=== PATIENT | female | born 1965 | race Caucasian/White ===

== ENCOUNTER 2016-05-10 11:43 | Emergency (ER) | payer OTHER ==
[2016-05-10] MEDS ORDERED: IPRATROPIUM-ALBUTEROL 3 ML NEB INHALATION STA ×2 (14:29→16:08)
[2016-05-10] MEDS ORDERED: methylPREDNISolone SOD SUCCI 125 MG/2 ML VIAL IV STA (14:29)
--- NOTE | 2016-05-10 14:45 | XR ---
EXAMINATION TYPE: XR chest 2V DATE OF EXAM: 05/10/2016 2:39 PM COMPARISON: 02/19/2013 HISTORY: Shortness of breath TECHNIQUE: Frontal and lateral views of the chest are obtained. FINDINGS: Scattered senescent parenchymal changes noted. Hyperinflation compatible with COPD. No evidence for infiltrate. No evidence for atelectasis. Heart size is stable. Mediastinal structures are stable and grossly unremarkable. No evidence for hilar prominence. Degenerative changes dorsal spine. IMPRESSION: 1. No evidence for acute pulmonary disease.
--- NOTE | 2016-05-10 14:55 | ED ---
General Adult HPI - General Chief complaint: Upper Respiratory Infection Stated complaint: SENT BY DR PEREYRA FOR BRONCIAL PNEUMONIA Time Seen by Provider: 05/10/16 14:05 Source: patient, RN notes reviewed Mode of arrival: wheelchair Limitations: no limitations - History of Present Illness Initial comments: Patient 50-year-old female who presents emergency room today with a chief complaint of bronchopneumonia. She does not that she was been seen by the family doctor over the last 2 weeks diagnosed and states symptoms are not improving. States she was advised by her family doctor come here to the emergency room for IV medication. Patient does admit she's been trying breathing treatments at home with little relief the symptoms. Patient does admit to cough congestion with positive sputum production it's been green in color. Denies any other complaints. Patient denies any recent fever, chills, shortness of breath, chest pain, back pain, abdominal pain, nausea or vomiting, numbness or tingling, dysuria or hematuria, constipation or diarrhea, headaches or visual changes, or any other complaints. - Related Data Home Medications Medication Instructions Recorded Confirmed Atenolol [Tenormin] 25 mg PO QAM 09/09/13 05/10/16 DULoxetine HCL [Cymbalta] 60 mg PO QAM 09/09/13 05/10/16 Hydrochlorothiazide [Hydrodiuril] 25 mg PO QAM 09/09/13 05/10/16 Levothyroxine Sodium [Synthroid] 75 mcg PO QAM 09/09/13 05/10/16 Albuterol Nebulized [Ventolin 2.5 mg INHALATION RT-TID PRN 05/10/16 05/10/16 Nebulized] Azithromycin [Zithromax Z-pack] See Taper PO DAILY 05/10/16 05/10/16 Brimonidine Tartrate [Alphagan P 1 drops LEFT EYE BID 05/10/16 05/10/16 0.1% Ophth Soln] Carboxymethylcellulose Sodium 1 drop LEFT EYE QID 05/10/16 05/10/16 [Refresh Tears] Cefuroxime [Ceftin] 250 mg PO BID 05/10/16 05/10/16 James/Polymyx B Sulf/Dexameth 1 applic LEFT EYE BID 05/10/16 05/10/16 [Maxitrol Ophth Oint] Omeprazole 20 mg PO DAILY 05/10/16 05/10/16 methylPREDNISolone Dose Pack See Taper PO DAILY 05/10/16 05/10/16 [Medrol Dose Pack] Previous Rx's Medication Instructions Recorded Benzonatate [Tessalon Perles] 100 mg PO TID PRN #20 capsule 05/10/16 Allergies Allergy/AdvReac Type Severity Reaction Status Date / Time Sulfa (Sulfonamide Allergy Rash/Hives Verified 05/10/16 14:35 Antibiotics) tape Allergy Rash/Hives Uncoded 11/18/13 12:13 Review of Systems ROS Statement: Those systems with pertinent positive or pertinent negative responses have been documented in the HPI. ROS Other: All systems not noted in ROS Statement are negative. Past Medical History Past Medical History: GERD/Reflux, Hypertension, Thyroid Disorder Additional Past Medical History / Comment(s): low back pain, arth left knee, migraines History of Any Multi-Drug Resistant Organisms: None Reported Past Surgical History: Appendectomy, Bariatric Surgery, Breast Surgery, Cholecystectomy, Heart Catheterization, Hysterectomy, Orthopedic Surgery, Tonsillectomy Additional Past Surgical History / Comment(s): Lap band 2010 & prior yr unknown, panniculectomy yr unknown, breast reduction yr unknown, heart cath x2, carpul tunnel june hands, colonoscopy. BLADDER SUSPENSION. Pt had lap band removed . Past Anesthesia/Blood Transfusion Reactions: Family History of Problems w/ Anesthesia, Postoperative Nausea & Vomiting (PONV) Additional Past Anesthesia/Blood Transfusion Reaction / Comment(s): STATES SHE GETS AGITATED WHEN FIRST RECEIVING IV ANESTHESIA. Past Psychological History: Anxiety Smoking Status: Former smoker Past Alcohol Use History: None Reported Past Drug Use History: None Reported - Past Family History Father Family Medical History: Cancer, Deep Vein Thrombosis (DVT) Additional Family Medical History / Comment(s): prostate cancer General Exam - General Exam Comments Initial Comments: General: The patient is awake and alert, in no distress, and does not appear acutely ill. Eye: Pupils are equal, round and reactive to light, extra-ocular movements are intact. No nystagmus. There is normal conjunctiva bilaterally. No signs of icterus. Ears, nose, mouth and throat: There are moist mucous membranes and no oral lesions. Neck: The neck is supple, there is no tenderness or JVD. Cardiovascular: There is a regular rate and rhythm. No murmur, rub or gallop is appreciated. Respiratory: Decreased breath sounds bilaterally with mild expiratory wheeze. respirations are non-labored, breath sounds are equal. No stridor, rales, or rhonchi. Musculoskeletal: Normal ROM, no tenderness. Strength 5/5. Sensation intact. Pulses equal bilaterally 2+. Neurological: A&O x 3. CN II-XII intact, There are no obvious motor or sensory deficits. Coordination appears grossly intact. Speech is normal. Skin: Skin is warm and dry and no rashes or lesions are noted. Psychiatric: Cooperative, appropriate mood & affect, normal judgment. Limitations: no limitations Course Vital Signs 05/10/16 05/10/16 05/10/16 12:35 14:39 14:50 Temperature 98.2 F Pulse Rate 68 70 72 Respiratory 20 Rate Blood Pressure 159/88 O2 Sat by Pulse 98 Oximetry 05/10/16 05/10/16 05/10/16 15:26 16:01 16:13 Temperature 98.4 F Pulse Rate 67 66 68 Respiratory 18 26 H Rate Blood Pressure 154/72 151/68 O2 Sat by Pulse 99 99 Oximetry 05/10/16 16:23 Temperature Pulse Rate 70 Respiratory Rate Blood Pressure O2 Sat by Pulse Oximetry Medical Decision Making - Medical Decision Making Patient reexamined at this time shows no signs of distress. Patient's pulse ox currently 99% on room air. Patient's chest x-rays negative for any sign of pneumonia. Results were discussed with the patient. Case discussed with attending physician Dr. Puckett who discussed case with on-call for Dr. Mauricio Borjas. Recommends patient be discharged home. Continued on steroids breathing treatments. Patient given [place] present for symptoms advised follow- up the family doctor over the next 2 days. Patient advised return to emergency room symptoms increase or worsen or for any other concerns she states understanding. - Lab Data Result diagrams: 05/10/16 15:10 05/10/16 15:10 Lab Results 05/10/16 05/10/16 Range/Units 15:10 15:10 WBC 13.2 H (3.8-10.6) k/uL RBC 5.03 (3.80-5.40) m/uL Hgb 13.9 (11.4-16.0) gm/dL Hct 41.9 (34.0-46.0) % MCV 83.2 (80.0-100.0) fL MCH 27.7 (25.0-35.0) pg MCHC 33.3 (31.0-37.0) g/dL RDW 13.5 (11.5-15.5) % Plt Count 383 (150-450) k/uL Neutrophils % 64 % Lymphocytes % 29 % Monocytes % 5 % Eosinophils % 0 % Basophils % 1 % Neutrophils # 8.5 H (1.3-7.7) k/uL Lymphocytes # 3.8 (1.0-4.8) k/uL Monocytes # 0.6 (0-1.0) k/uL Eosinophils # 0.0 (0-0.7) k/uL Basophils # 0.1 (0-0.2) k/uL Sodium 142 (137-145) mmol/L Potassium 4.7 (3.5-5.1) mmol/L Chloride 98 (98-107) mmol/L Carbon Dioxide 30 (22-30) mmol/L Anion Gap 14 mmol/L BUN 24 H (7-17) mg/dL Creatinine 0.83 (0.52-1.04) mg/dL Est GFR (MDRD) Af Amer >60 (>60 ml/min/1.73 sqM) Est GFR (MDRD) Non-Af >60 (>60 ml/min/1.73 sqM) Glucose 89 (74-99) mg/dL Calcium 10.2 (8.4-10.2) mg/dL Total Bilirubin 0.5 (0.2-1.3) mg/dL AST 19 (14-36) U/L ALT 34 (9-52) U/L Alkaline Phosphatase 79 (38-126) U/L Total Protein 8.3 H (6.3-8.2) g/dL Albumin 4.6 (3.5-5.0) g/dL Disposition Clinical Impression: Acute bronchitis Disposition: HOME SELF-CARE Condition: Good Instructions: Upper Respiratory Infection (ED) Additional Instructions: Please use medication as discussed. Please follow-up with family doctor in the next 2 days of symptoms have not improved. Please return to emergency room if the symptoms increase or worsen or for any other concerns. Prescriptions: Benzonatate [Tessalon Perles] 100 mg PO TID PRN #20 capsule PRN Reason: Cough Time of Disposition: 16:35
[2016-05-10 15:31] LABS: Basophils # (A) 0.1 k/uL (0-0.2); Basophils % (A) 1 %; CH 27.5; CHCM 33.2; Eosinophils % (A) 0 %; HCT 41.9 % (34.0-46.0); HDW 2.78; HGB 13.9 gm/dL (11.4-16.0); Luc # (Auto) 0.25; Luc % (Auto) 2; Lymphocytes # (A) 3.8 k/uL (1.0-4.8); Lymphocytes % (A) 29 %; MCH 27.7 pg (25.0-35.0); MCHC 33.3 g/dL (31.0-37.0); MCV 83.2 fL (80.0-100.0); Mean Platelet Volume 7.9; Monocytes # (A) 0.6 k/uL (0-1.0); Monocytes % (A) 5 %; Neutrophils # (A) 8.5 k/uL (1.3-7.7); Neutrophils % (A) 64 %; RBC 5.03 m/uL (3.80-5.40); RDW 13.5 % (11.5-15.5); WBC 13.2 k/uL (3.8-10.6); WBC (Perox) 12.72
[2016-05-10] MEDS ORDERED: ACETAMINOPHEN IV (For NPO) 1,000 MG in SALINE 100 100ML.BAG IVPB STA (15:34)
[2016-05-10 15:39] LABS: ALT 34 U/L (9-52); AST 19 U/L (14-36); Alkaline Phosphatase 79 U/L (38-126); Anion Gap 14 mmol/L; Blood Urea Nitrogen 24 mg/dL (7-17); Calcium 10.2 mg/dL (8.4-10.2); Carbon Dioxide 30 mmol/L (22-30); Chloride 98 mmol/L (98-107); Glucose 89 mg/dL (74-99); Non-African American GFR(MDRD) >60 (>60 ml/min/1.73 sqM); Potassium 4.7 mmol/L (3.5-5.1); Sodium 142 mmol/L (137-145); Total Bilirubin 0.5 mg/dL (0.2-1.3); Total Protein 8.3 g/dL (6.3-8.2)
[2016-05-10 16:55] VITALS: BP 157/77; PULSE 66; RESP 19; TEMP 98.3
== END 2016-05-10 16:55 | disposition home or self-care (01) ==
LOC: EC 11:43
DX: J20.9 Acute bronchitis, unspecified (principal); Z79.899 Other long term (current) drug therapy; I10 Essential (primary) hypertension; E07.9 Disorder of thyroid, unspecified; K21.9 Gastro-esophageal reflux disease without esophagitis; Z88.2 Allergy status to sulfonamides; Z91.048 Other nonmedicinal substance allergy status; Z87.891 Personal history of nicotine dependence; F41.9 Anxiety disorder, unspecified
CPT/HCPCS: 36415; 94640 ×2; 80053; 85025; 71020; 96374; 96375; 99284; J2930; J0131

== ENCOUNTER → 2017-10-29 | Outpatient (CLI) | payer OTHER ==
--- NOTE | 2017-10-29 13:33 | CONS ---
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 HISTORY OF PRESENT ILLNESS/SLEEP WAKE EVALUATION: Patient's usual sleep schedule from 10 p.m. until 4:30 a.m. Usually no problems with falling asleep. No TV set in bedroom. Patient usually sleeps on the side position with her . She wakes up from sleep up to 2 times with nocturia. Her did not complain on her snoring. Occasionally patient may take naps during the day because she gets up so early. She feel refreshed after naps. She takes 1 to 2 cups of coffee a day. [place] Sleepiness Scale is 2. PAST MEDICAL HISTORY: Positive for hypertension, hypothyroidism, acid reflux, anxiety, history of left eye infection. PAST SURGICAL HISTORY: Bilateral surgery for carpal tunnel syndrome, tonsillectomy, cholecystectomy, total hysterectomy, breast reduction, lap band surgery, sinus surgery. MEDICATIONS: Omeprazole, Cymbalta, levothyroxine, doxycycline, hydrochlorothiazide, atenolol, eye drops. SOCIAL HISTORY: Patient quit smoking 32 years ago. Alcohol consumption very rarely at the present time. FAMILY HISTORY: Hypertension, heart problems, arthritis, sinus problems, bronchitis, pneumonia, headaches, cancer, acid reflux, diabetes. REVIEW OF SYSTEMS: Occasional swelling of the legs, otherwise negative. PHYSICAL EXAMINATION: During physical exam, a 52-year-old lady without distress. VITAL SIGNS: BP 141/88, HR is 77, RR 16, height 5 feet 6-1/2 inches, weight 275.2, BMI 43.7, temperature 98.6, oxygen saturation in room air 97%. HEENT: PERRLA, EOMI. Oropharynx slightly short distance between soft palate and posterior pharyngeal wall. NECK: Supple, no JVD. Thyroid is not palpable. LUNGS: Clear to percussion and to auscultation. Good air exchange. No wheezing or rhonchi. HEART: S1, S2 regular. No murmurs, gallops, or rubs. ABDOMEN: Obese. EXTREMITIES: Very minimal up to 1+ ankle swelling. LAND COMMISSIONER: Awake, alert, and oriented x3. Cranial nerves 2 to 7 intact. There is no fasciculation or atrophy. noted. No focal deficits observed. IMPRESSION: 1. Awakenings from sleep with nocturia up to 2 times, wide neck 17 inches in circumference, obesity, BMI 43.7, slightly short distance between soft palate and posterior pharyngeal wall, possible obstructive sleep apnea-hypopnea syndrome. 2. Obesity, body mass index 43.7. 3. Hypertension. 4. Hypothyroidism. 5. Acid reflux. 6. Anxiety. 7. History of left eye infection recently. 8. Status post bilateral carpal tunnel syndrome surgery. 9. Status post tonsillectomy. 10.Status post cholecystectomy. 11.Status post total hysterectomy. 12.Status post breast reduction surgery. 13.Status post lap band surgery. 14.Status post sinus surgery. PLAN: 1. Polysomnography for evaluation of patient's breathing during sleep. 2. CPAP/BiPAP titration if sleep study confirms obstructive sleep apnea-hypopnea syndrome. 3. Preferable position during sleep on the side. 4. No driving if patient feels any sleepiness. 5. I will see patient for follow up visit to explain results of testing and following plan. Thank you very much for referring this patient for consultation. Sincerely, Titus Barrett MD, PhD, FAASM Diplomat of [employer] Certified Anesthesiologist Assistant of [facility] [place] MMODL / IJN: [id number] /
== END | disposition home or self-care (01) ==
LOC: SLEEP 10:39
PROVIDERS: ATTEND Internal Medicine
DX: R35.1 Nocturia (principal); J39.2 Other diseases of pharynx; M53.82 Other specified dorsopathies, cervical region; E66.9 Obesity, unspecified; I10 Essential (primary) hypertension; E03.9 Hypothyroidism, unspecified; K21.9 Gastro-esophageal reflux disease without esophagitis; F41.9 Anxiety disorder, unspecified; Z87.39 Personal history of other diseases of the musculoskeletal system and connective tissue; Z98.890 Other specified postprocedural states; Z90.89 Acquired absence of other organs; Z90.49 Acquired absence of other specified parts of digestive tract; Z90.710 Acquired absence of both cervix and uterus; Z98.84 Bariatric surgery status; Z86.19 Personal history of other infectious and parasitic diseases; Z68.41 Body mass index [BMI] 40.0-44.9, adult; Z79.899 Other long term (current) drug therapy; Z87.891 Personal history of nicotine dependence
CPT/HCPCS: 99211

== ENCOUNTER → 2018-01-15 | Outpatient (CLI) | payer OTHER ==
--- NOTE | 2018-01-15 11:55 | SFUN ---
SLEEP CENTER FOLLOW UP NOTE DATE OF SERVICE: 01/15/2018 This 52-year-old lady has been followed in sleep center for treatment of obstructive sleep apnea-hypopnea syndrome. Recently patient had a diagnostic polysomnogram and CPAP titration, which showed severe obstructive sleep apnea-hypopnea syndrome. Subsequently, patient was started on treatment with CPAP. Today is her first visit with new CPAP unit. I explained the results of the sleep studies to the patient in detail. She is able to use her CPAP equipment without significant problems. The patient feels that she has leak from her nasal mask, but otherwise again she is able to use machine without significant problems. [place] Sleepiness Scale today is 2. I checked patient's CPAP unit. It is in the automatic regimen range of the pressure of 5 to 18, most 95% of the pressure is 8.9 cm of water. The patient using it every night and /30 nights more than 4 hours. Average usage 5.5 hours. Leak is 32 L/minute. Apnea-hypopnea index is 3.4, which is normal range. MEDICATIONS: Omeprazole, Cymbalta, levothyroxine, doxycycline, hydrochlorothiazide, atenolol, eyedrops. PHYSICAL EXAMINATION: During physical exam, patient in no distress. VITAL SIGNS: BP 160/79, HR 75, RR 16, weight 285.2, temperature 98.6, oxygen saturation room air 98%. HEENT: PERRLA, EOMI. Oropharynx low position of soft palate. NECK: Supple, no JVD. Thyroid is not palpable. LUNGS: Clear to percussion and to auscultation. Good air exchange. No wheezing or rhonchi. HEART: S1, S2 regular. No murmurs, gallops, or rubs. ABDOMEN: Obese. EXTREMITIES: No clubbing or cyanosis. SAUSAGE MAKER: Awake, alert, and oriented X3. Cranial nerves 2 to 7 intact. There is no fasciculation or atrophy. noted. No focal deficits observed. IMPRESSION: 1. Severe obstructive sleep apnea-hypopnea syndrome; apnea-hypopnea index 31 with oxygen saturation of 80% on control with CPAP, level of the pressure around 9 cm of water. The machine is on automatic regimen. The patient demonstrated great compliance with treatment benefitting from treatment. 2. Hypertension. 3. Obesity. 4. Anxiety. 5. Acid reflux. 6. Hypothyroidism. PLAN: 1. We fitted patient with DreamWear mask small size. Patient likes this mask. I will write prescription for patient to get this mask. 2. Patient will continue to use her CPAP equipment every night for the whole night. 3. Losing weight. 4. Sleep hygiene with regular time in bed for at least 8 hours. 5. No driving if feeling any sleepiness. 6. We will maintain prescription for all necessary CPAP supplies. Thank you very much for allowing me to participate in management of your patient. Followup visit in one year or earlier if patient has any problems. Sincerely, Titus Barrett MD, PhD, FAASM Diplomat of [place] [employer] [employer] Driver of [facility] [place] MMODL / REECEN: [id number] /
== END | disposition home or self-care (01) ==
LOC: SLEEP 10:11
PROVIDERS: ATTEND Internal Medicine
DX: G47.33 Obstructive sleep apnea (adult) (pediatric) (principal); I10 Essential (primary) hypertension; E66.9 Obesity, unspecified; F41.9 Anxiety disorder, unspecified; K21.9 Gastro-esophageal reflux disease without esophagitis; E03.9 Hypothyroidism, unspecified; Z99.89 Dependence on other enabling machines and devices; Z79.899 Other long term (current) drug therapy

== ENCOUNTER → 2018-03-05 | Outpatient (CLI) | payer OTHER ==
--- NOTE | 2018-03-05 12:44 | BD ---
EXAMINATION TYPE: Axial Bone Density DATE OF EXAM: 03/05/2018 COMPARISON: NONE CLINICAL HISTORY: 52 YR OLD FEMALE....ICD-10 CODE: Z13.820 POST MENOPAUSAL Height: 66 Weight: 281 FRAX RISK QUESTIONS: History of Fracture in Adulthood: YES Secondary Osteoporosis: YES 3. Menopause before 45: YES, AT 26 YRS OLD RISK FACTORS HISTORY OF: HX OF LT KNEE, AND PATELLA FX AT AGE 46 YRS OLD Family History of Osteoporosis: YES HER SISTER Postmenopausal woman: TOTAL HYST AT AGE 27 YRS OLD MEDICATIONS: Thyroid Medications: YES, SYNTHROID FOR ABOUT 10 YRS Additional Medications: BP MEDS, CYMBALTA, REFLUX MEDS, CALCIUM WITH D DAILY Additional History: HYPERTENSION, GURD, EXAM MEASUREMENTS: Bone mineral densitometry was performed using the [employer] System. Bone mineral density as measured about the Lumbar spine is: ----- L1-L4(G/cm2): 1.246 T Score Values are as follows: ----- L1: 0.4 ----- L2: -0.5 ----- L3: 0.5 ----- L4: 1.5 ----- L1-L4: 0.5 Bone mineral density FIRST BONE DENSITY AT [facility] Bone mineral density about the R hip (g/cm2): 1.019 Bone mineral density about the L hip (g/cm2): 1.073 T Score values are as follows: -----R Neck: -0.6 -----L Neck: -0.1 -----R Total: 0.1 -----L Total: 0.5 Bone mineral density FIRST DEXA SCAN AT [facility] FRAX%s: THERE IS A 7.6% CHANCE FOR A MAJOR OSTEOPOROTIC FX AND A 0.2% FOR HIP....PROBABILITY FOR F X IN 10 YRS TIME IMPRESSION: No evidence for osteoporosis or osteopenia. NOTE: T-SCORE=SD OF THE YOUNG ADULT MEAN.
--- NOTE | 2018-03-06 13:54 | MM ---
Reason for exam: screening (asymptomatic). Last mammogram was performed 15 years and 10 months ago. History: Patient is postmenopausal. Family history of breast cancer in paternal grandmother. Reductions of both breasts. Physical Findings: A clinical breast exam by your physician is recommended on an annual basis and results should be correlated with mammographic findings. MG 3D Screening Mammo W/Cad Bilateral CC, MLO, and XCCL view(s) were taken. Prior study comparison: April 26, 2009, mammogram, performed at [facility]. There are scattered fibroglandular densities. Finding: There are indeterminate grouped, linear calcifications in the slight upper outer quadrant, anterior position of the right breast. New finding since April 26, 2009. ASSESSMENT: Incomplete: need additional imaging evaluation, BI-RAD 0 RECOMMENDATION: Special view mammogram of the right breast. [facility] will attempt to contact patient to return for supplemental views.
== END | disposition home or self-care (01) ==
LOC: RADMAMWWP 10:01
PROVIDERS: ATTEND Family Medicine
DX: Z12.31 Encounter for screening mammogram for malignant neoplasm of breast (principal)
CPT/HCPCS: 77063; 77067; 77080

== ENCOUNTER → 2018-03-25 | Outpatient (CLI) | payer OTHER ==
--- NOTE | 2018-03-26 09:41 | MM ---
Reason for exam: additional evaluation requested from prior study. Last mammogram was performed 1 month ago. History: Patient is postmenopausal. Family history of breast cancer in paternal grandmother. Reductions of both breasts 2009. Physical Findings: Nurse did not find any significant physical abnormalities on exam. MG 3D Work Up W/Cad RT CC with magnification, ML with magnification, and ML view(s) were taken of the right breast. Prior study comparison: March 05, 2018, bilateral MG 3d screening mammo w/cad. April 26, 2009, mammogram, performed at [facility]. The breast tissue is almost entirely fat. There are grouped coarse calcification in the right breast upper outer anterior. Finding is new when compared to prior studies. These results were verbally communicated with the patient and result sheet given to the patient on 03/25/18. ASSESSMENT: Suspicious, BI-RAD 4 RECOMMENDATION: Stereotactic core biopsy of the right breast. Called Dr. Martínez with mammographic findings and has scheduled an appointment for the patient for 04/09/18 at 2:[address] Dominique for consultation only. Stereo core biopsy of the right breast is to be done on 04/10/18 at 8:00 am. PRELIMINARY REPORT CALLED AND FAXED TO DR. DOMINIQUE ON 03/25/18.
== END ==
LOC: RADMAMWWP 10:09
PROVIDERS: ATTEND Family Medicine
DX: R92.8 Other abnormal and inconclusive findings on diagnostic imaging of breast (principal)
CPT/HCPCS: 77061; 77065

== ENCOUNTER → 2018-04-09 | Outpatient (CLI) | payer OTHER ==
[2018-04-09 15:04] VITALS: BP 134/87; PULSE 63; RESP 18; TEMP 97.9; BMI 44.6
--- NOTE | 2018-04-09 15:43 | P.GSHP ---
History of Present Illness H&P Date: 04/09/18 Chief Complaint: abnormal right breast mammogram Anna is a 52-year-old white female who on a routine mammogram was noted to have an area of increased coarse calcifications in the right breast in the upper outer quadrant of the right breast. She does not feel anything of concern in her breast. Of significance is the fact that she had undergone a breast reduction approximately 10 years ago and has not had a mammogram since that time. No nipple discharge or skin changes. Family History: paternal grandmother: breast cancer father: prostate cancer brother: prostate cancer Hormonal History: menarche: 10 : 2, first at 21, breast fed: no, 2 children menopause: PEACE late 's irregular periods BCP: 2 months hormones: 2 months Past Surgical History: 1. T&A 2. appy 3. gallbladder 4. PEACE (total abdominal hysterectomy) 5. breast reduction 6. tummy tuck 7. twice lap-band lost 100 pounds 8. bilateral carpal tunnel 9. cyst on ovary and resection prior to PEACE Past Medical History: 1. HTN 2. hypothyroid 3. sleep apnea Social History: smoke: none alcohol: occasional drugs: none - Constitutional Constitutional: Denies chills, Denies fever - EENT Comment: cataract left eye Eyes: denies blurred vision, denies pain Ears: deny: decreased hearing, tinnitus Ears, nose, mouth and throat: Denies headache, Denies sore throat - Breasts Breasts: bilateral: as per HPI - Cardiovascular Cardiovascular: Reports high blood pressure, Denies chest pain, Denies shortness of breath - Respiratory Respiratory: Denies cough, Denies 7 - Gastrointestinal Comment: lap band twice (both removed), diverticular disease GERD - Genitourinary (Female) Genitourinary: Denies dysuria, Denies hematuria - Menstruation Menstruation: Reports post hysterectomy - Musculoskeletal Comment: left knee pain - Integumentary Integumentary: Denies pruritus, Denies rash - Neurological Neurological: Denies numbness, Denies weakness - Psychiatric Psychiatric: Reports anxiety, Reports depression - Endocrine Comment: hypothyroid - Hematologic/Lymphatic Comment: none - Allergic/Immunologic Comment: sulfa, tape Past Medical History Past Medical History: GERD/Reflux, Hypertension, Thyroid Disorder Additional Past Medical History / Comment(s): low back pain, arth left knee, migraines, left eye cataract History of Any Multi-Drug Resistant Organisms: None Reported Past Surgical History: Appendectomy, Bariatric Surgery, Breast Surgery, Cholecystectomy, Heart Catheterization, Hysterectomy, Orthopedic Surgery, Tonsillectomy Additional Past Surgical History / Comment(s): Lap band 2010 & prior yr unknown, panniculectomy yr unknown, breast reduction yr unknown, heart cath x2, carpul tunnel june hands, colonoscopy. BLADDER SUSPENSION. Pt had lap band removed . Abdominalplasty 2007 Past Anesthesia/Blood Transfusion Reactions: Family History of Problems w/ Anesthesia, Postoperative Nausea & Vomiting (PONV) Additional Past Anesthesia/Blood Transfusion Reaction / Comment(s): STATES SHE GETS AGITATED WHEN FIRST RECEIVING IV ANESTHESIA. Past Psychological History: Anxiety Smoking Status: Former smoker Past Alcohol Use History: Rare Past Drug Use History: None Reported - Past Family History Father Family Medical History: Cancer, Deep Vein Thrombosis (DVT) Additional Family Medical History / Comment(s): prostate cancer Medications and Allergies Home Medications Medication Instructions Recorded Confirmed Type Atenolol [Tenormin] 25 mg PO QAM 09/09/13 04/09/18 History DULoxetine HCL [Cymbalta] 60 mg PO QAM 09/09/13 04/09/18 History Hydrochlorothiazide [Hydrodiuril] 25 mg PO QAM 09/09/13 04/09/18 History Levothyroxine Sodium [Synthroid] 75 mcg PO QAM 09/09/13 04/09/18 History Carboxymethylcellulose Sodium 1 drop BOTH EYES QID 05/10/16 04/09/18 History [Refresh Tears] Omeprazole 20 mg PO DAILY 05/10/16 04/09/18 History Aspirin [Adult Low Dose Aspirin EC] 81 mg PO DAILY 04/01/18 04/09/18 History Doxycycline [Vibramycin] 50 mg PO DAILY 04/01/18 04/09/18 History Olopatadine HCl [Pazeo] 1 drop BOTH EYES DAILY 04/01/18 04/09/18 History Allergies Allergy/AdvReac Type Severity Reaction Status Date / Time bee venom protein (honey bee) Allergy Swelling Verified 04/09/18 15:05 Sulfa (Sulfonamide Allergy Rash/Hives Verified 04/09/18 15:05 Antibiotics) tape Allergy Rash/Hives Uncoded 04/09/18 15:05 Surgical - Exam Vital Signs Temp Pulse Resp BP Pulse Ox 97.9 F 63 18 134/87 97 04/09/18 14:57 04/09/18 14:57 04/09/18 14:57 04/09/18 14:57 04/09/18 14:57 BMI 44.7 - General obese - Eyes normal ocular movement - ENT no hearing loss, no congestion - Neck no masses, trachea midline - Respiratory normal respiratory effort, clear to auscultation - Cardiovascular Rhythm: regular Heart Sounds: normal: S1, S2 - Abdomen Abdomen: soft, non tender, no guarding, no rigid, no rebound - Integumentary normal turgor - Neurologic no disoriented, no combative - Musculoskeletal normal gait, normal posture - Psychiatric oriented to time, oriented to person, oriented to place, speech is normal, memory intact breast exam: right breast: multipostitional exam changes from reduction mammoplasty, no dominate masses or nodules right axilla: no adenopathy of concern left breast: multipositional exam, changes from reduction mammoplasty, no dominate masses or nodules of concern Results mammogram report reviewed Assessment and Plan Assessment: Impression: 1. obesity 2. abnormal mammogram right breast 3. HTN 4. hypothyroid 5. arthritis left knee Plan: 1. stero biopsy right breast 2. medical managment of medical conditions Risk and benefits of procedure discussed with the patient and she wishes to proceed. CC: Dr. Martínez
== END | disposition home or self-care (01) ==
LOC: WWCWWP 14:50
PROVIDERS: ATTEND Surgery
DX: Z53.9 Procedure and treatment not carried out, unspecified reason (principal)

== ENCOUNTER → 2018-04-10 | Day surgery (SDC) | payer OTHER ==
[2018-04-10 07:20] VITALS: RESP 18; TEMP 98; BMI 45.3
--- NOTE | 2018-04-10 08:38 | P.OP ---
Date of Procedure: 04/10/18 Preoperative Diagnosis: Mammographic abnormality right breast Postoperative Diagnosis: same Procedure(s) Performed: Right breast stereotactic core biopsy Anesthesia: local Surgeon: Rosetta Dominique Estimated Blood Loss (ml): 1 Pathology: other Condition: stable Disposition: same day Indications for Procedure: Mammographic abnormality right breast Operative Findings: Microcalcifications of concern and specimen Description of Procedure: Anna is a 52-year-old white female who was noted to have microcalcifications of concern in her right breast on a recent mammogram. The patient was recommended to undergo a stereotactic core biopsy. The patient was taken to the stereotactic core room after risk and benefits of the procedure were discussed. She was positioned on the Lo Rad table; the approach to identify the lesion was a lateral to medial approach. The area of concern was identified and targeted. The breast was prepped using Betadine. 20 mL of 1% lidocaine was used to anesthetize the area of concern. The needle was driven to the correct coordinates and prefire films were obtained to identify the needle was in the correct location. The needle was fired and post-fire films were obtained. 6 core biopsies were obtained using a 19-gauge vacuum assisted rotating cutting needle. Radiograph of the specimen revealed that the calcifications of concern had been sampled. A secure marked top-felt hat steamer was deployed at the site and radiograph confirmed was in the correct location. There were no immediate post procedure complications. The patient tolerated the procedure in stable condition. The patient will follow-up with Dr. Barboza in 1 week. The specimen was sent for pathology.
[2018-04-10 09:08] VITALS: BP 118/70; PULSE 60
--- NOTE | 2018-04-10 10:04 | MM ---
Stereotactic core biopsy right breast. HISTORY: Microcalcifications. The calcifications in question within the right breast were targeted by the undersigned. The examination was performed by the surgeon. Specimen radiograph demonstrates numerous calcifications within the specimen submitted. Post procedural mammogram demonstrates appropriate deployment of radiopaque clip marker. The patient tolerated the procedure well and left the department in stable condition. Pathology results are pending. IMPRESSION: Successful stereotactic core biopsy right breast with pathology results pending. Pathology Results: Benign RIGHT BREAST, NEEDLE CORE BIOPSIES: Benign breast parenchyma with pigmented histiocytes and intraductal mineralizations suggestive of trauma to fibrocystic disease or breast trauma. Recommendation Follow up mammogram of the right breast in 6 months. BILL
== END | disposition home or self-care (01) ==
LOC: RADMAMWWP 06:49
PROVIDERS: ATTEND Surgery
DX: R92.0 Mammographic microcalcification found on diagnostic imaging of breast (principal); R92.8 Other abnormal and inconclusive findings on diagnostic imaging of breast
CPT/HCPCS: 88305; 19081; A4648; J2001

== ENCOUNTER → 2018-04-17 | Outpatient (CLI) | payer OTHER ==
[2018-04-17 11:31] VITALS: BP 134/83; PULSE 69; RESP 18; TEMP 97.4
--- NOTE | 2018-04-17 11:44 | P.PN ---
Subjective Progress Note Date: 04/17/18 Principal diagnosis: right breast sterotactic biopsy Anna is a 52-year-old white female status post right breast stereotactic core biopsy and 2118. This was benign specific. An pathology reveals intraductal mineralization suggestive of trauma to fibrocystic disease or breast trauma. She is status post a reduction mammoplasty. The patient is doing well however she did get a reaction to the Steri-Strips. Physical examination: Lungs: Clear Heart: Regular rate and rhythm Right breast: Area of elevated maculopapular rash near the biopsy site which is approximately 4 x 6 cm in size Evidence of any infection Puncture site clean and dry Impression: 1. Benign stereotactic breast biopsy/this was felt to be concordant 2. Skin reaction to Steri-Strip Plan: 1. Repeat right breast mammogram in 6 months with a physician exam at that time 2. Apply hydrocortisone cream 1% to affected area twice a day this isn't a 30 g tube 3. Follow-up next week to evaluate area of skin reaction Cc; DR. Martínez Objective - Vital Signs Vital signs: Vital Signs Temp 97.4 F L 04/17/18 11:29 Pulse 69 04/17/18 11:29 Resp 18 04/17/18 11:29 BP 134/83 04/17/18 11:29 Pulse Ox 99 04/17/18 11:29 Intake & Output 04/16/18 04/17/18 04/17/18 18:59 06:59 18:59 Weight 123.377 kg
== END | disposition home or self-care (01) ==
LOC: WWCWWP 11:17
PROVIDERS: ATTEND Surgery
DX: Z53.9 Procedure and treatment not carried out, unspecified reason (principal)

== ENCOUNTER → 2020-03-08 | Outpatient (CLI) | payer OTHER ==
--- NOTE | 2020-03-09 00:25 | SFUN ---
SLEEP CENTER FOLLOW UP NOTE DATE OF SERVICE: 03/08/2020 54-year-old lady who has been followed in Sleep Center for treatment of obstructive sleep apnea-hypopnea syndrome. The patient indicated that she did not use the machine regularly recently, but trying to do it, had some problems with her nasal mask. I reviewed the patient's chart. Diagnostic sleep study shows severe sleep apnea with apnea-hypopnea index 31. Sometimes patient feels episodes of sleepiness during the day, although her [place] sleepiness Scale is 7. 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 I checked her CPAP unit. It is on automatic regimen. The pressure is 5-18, average pressure is 10.9. Usage for the last month is 14/30 nights and 10/30 nights for more than 4 hours with average usage 5.2 hours per night. For the last year, the patient used it 105/365 nights and 77 nights for more than 4 hours. Average usage about 5.2 hours per night. Leak is 14 L/minute. Apnea-hypopnea index is 7.1. MEDICATIONS: Omeprazole 20 mg once a day. Cymbalta 60 mg once a day, Atenolol 25 mg once a day hydrochlorothiazide 25 mg once a day. Levothyroxine 75 mcg once a day. PHYSICAL EXAM: Patient in no distress. BP 153/68, HR 86, RR 15, height 5 feet 6-1/2 inches, weight 287, BMI 45.6, temperature 98.0, oxygen saturation at room air 99% oropharynx low position of soft palate, wide neck 17 inches in circumference. NECK: Supple, no JVD. Thyroid is not palpable. LUNGS: Clear to percussion and to auscultation. Good air exchange. No wheezing or rhonchi. HEART: S1, S2 regular. No murmurs, gallops, or rubs. ABDOMEN: Obese. Soft and nontender. Bowel sounds are present. No organomegaly appreciated. EXTREMITIES: No clubbing or cyanosis. 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 Cranial nerves 2 to 7 intact. There is no fasciculation or atrophy. noted. No focal deficits observed. IMPRESSION: 1. Severe obstructive sleep apnea-hypopnea syndrome apnea-hypopnea index 31 with oxygen desaturation to 80%. Presently for the last year, patient did not demonstrate compliance with CPAP therapy. 2. Obesity, the weight is about the same as 2 years ago. 3. Hypertension. 4. Status post nasal septoplasty. 5. Anxiety. 6. Acid reflux. 7. Hyperlipidemia. 8. Hypothyroidism. 9. Status post left eye cataract surgery. 10.Status post appendectomy. 11.Status post cholecystectomy. 12.Status post total hysterectomy. 13.Status post bilateral surgery for carpal tunnel syndrome. 14.Status post breast reduction surgery. 15.Status post lap band surgery. PLAN: 1. Prescription for CPAP supplies. 2. Explain to the patient again, necessity to use CPAP treatment every night for the whole night. The patient promised to do it. 3. Aggressive losing weight program. 4. Presently, patient did not demonstrate good compliance with CPAP therapy. 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 5. No driving if feeling sleepiness. 6. Sleep hygiene with regular time in bed for 7-1/2 to 8 hours. 7. Followup visit in 2 months. Thank you very much for allowing me to participate in management of your patient. Sincerely, Tiuts Barrett MD, PhD, FAASM Diplomat of [place] [employer] [place] [employer] Assistant [facility] [place] MMODL / IJN: [id number] /
== END | disposition home or self-care (01) ==
LOC: SLEEP 11:52
PROVIDERS: ATTEND Internal Medicine
DX: G47.33 Obstructive sleep apnea (adult) (pediatric) (principal); E66.9 Obesity, unspecified; I10 Essential (primary) hypertension; F41.9 Anxiety disorder, unspecified; K21.9 Gastro-esophageal reflux disease without esophagitis; E78.5 Hyperlipidemia, unspecified; E03.9 Hypothyroidism, unspecified; Z68.42 Body mass index [BMI] 45.0-49.9, adult; Z90.49 Acquired absence of other specified parts of digestive tract; Z90.710 Acquired absence of both cervix and uterus; Z98.84 Bariatric surgery status; Z98.890 Other specified postprocedural states; Z79.890 Hormone replacement therapy; Z79.899 Other long term (current) drug therapy

== ENCOUNTER 2020-08-25 05:37 | Emergency (ER) | payer OTHER ==
[2020-08-25 05:42] VITALS: TEMP 97.7
[2020-08-25] MEDS ORDERED: SODIUM CHLORIDE 0.9% 1,000 ML IV STA (05:43)
--- NOTE | 2020-08-25 05:52 | ED ---
Dizziness HPI - General Chief Complaint: Dizziness Stated Complaint: dizziness,nausea Time Seen by Provider: 08/25/20 05:43 Source: patient, family, RN notes reviewed, old records reviewed Mode of arrival: wheelchair Limitations: no limitations - History of Present Illness Initial Comments: This is a 55 show female DF for evaluation of severe dizziness. This disease (the patient awoke this morning room was spinning lightheaded and feeling she was given a pass out fall over. Patient denying any headache chest pain shortness of breath or abdominal pain. No prior history of vertigo MD Complaint: dizziness, near syncope -: hour(s) Timing: sudden onset Description: lightheadedness, off-balance History of Same: No History of Trauma: No Severity: moderate Improves With: nothing Worsens With: movement Associated Symptoms: diaphoresis - Related Data Home Medications Medication Instructions Recorded Confirmed DULoxetine HCL [Cymbalta] 60 mg PO QAM 09/09/13 04/17/18 Levothyroxine Sodium [Synthroid] 75 mcg PO QAM 09/09/13 04/17/18 atenoloL [Tenormin] 25 mg PO QAM 09/09/13 04/17/18 hydroCHLOROthiazide [Hydrodiuril] 25 mg PO QAM 09/09/13 04/17/18 Carboxymethylcellulose Sodium 1 drop BOTH EYES QID 05/10/16 04/17/18 [Refresh Tears] Omeprazole 20 mg PO QAM 05/10/16 04/17/18 Aspirin [Adult Low Dose Aspirin EC] 81 mg PO DAILY 04/01/18 04/17/18 Doxycycline [Vibramycin] 50 mg PO DAILY 04/01/18 04/17/18 Olopatadine HCl [Pazeo] 1 drop BOTH EYES DAILY 04/01/18 04/17/18 Allergies Allergy/AdvReac Type Severity Reaction Status Date / Time bee venom protein (honey bee) Allergy Swelling Verified 08/25/20 05:42 Sulfa (Sulfonamide Allergy Rash/Hives Verified 08/25/20 05:42 Antibiotics) tape Allergy Rash/Hives Uncoded 08/25/20 05:42 Review of Systems ROS Statement: Those systems with pertinent positive or pertinent negative responses have been documented in the HPI. ROS Other: All systems not noted in ROS Statement are negative. Past Medical History Past Medical History: GERD/Reflux, Hypertension, Thyroid Disorder Additional Past Medical History / Comment(s): low back pain, arth left knee,migraines, left eye cataract History of Any Multi-Drug Resistant Organisms: None Reported Past Surgical History: Appendectomy, Bariatric Surgery, Breast Surgery, Cholecystectomy, Heart Catheterization, Hysterectomy, Orthopedic Surgery, Tonsillectomy Additional Past Surgical History / Comment(s): Lap band 2010 & prior yr unknown,panniculectomy yr unknown, breast reduction yr unknown, heart cath x2, carpul tunnel june hands, colonoscopy. BLADDER SUSPENSION. Pt had lap band removed 11/02/13. Abdominalplasty 2007 Past Anesthesia/Blood Transfusion Reactions: Family History of Problems w/ Anesthesia, Postoperative Nausea & Vomiting (PONV) Additional Past Anesthesia/Blood Transfusion Reaction / Comment(s): STATES SHE GETS AGITATED WHEN FIRST RECEIVING IV ANESTHESIA. Past Psychological History: Anxiety Smoking Status: Former smoker Past Alcohol Use History: Rare Past Drug Use History: None Reported - Past Family History Father Family Medical History: Cancer, Deep Vein Thrombosis (DVT) Additional Family Medical History / Comment(s): prostate cancer General Exam Limitations: no limitations General appearance: alert, in no apparent distress, anxious Head exam: Present: atraumatic, normocephalic, normal inspection Eye exam: Present: normal appearance, PERRL, EOMI. Absent: scleral icterus, conjunctival injection, periorbital swelling ENT exam: Present: normal exam, mucous membranes moist Neck exam: Present: normal inspection. Absent: tenderness, meningismus, lymphadenopathy Respiratory exam: Present: normal lung sounds bilaterally. Absent: respiratory distress, wheezes, rales, rhonchi, stridor Cardiovascular Exam: Present: regular rate, normal rhythm, normal heart sounds. Absent: systolic murmur, diastolic murmur, rubs, gallop, clicks GI/Abdominal exam: Present: soft, normal bowel sounds. Absent: distended, tenderness, guarding, rebound, rigid Extremities exam: Present: normal inspection, full ROM, normal capillary refill. Absent: tenderness, pedal edema, joint swelling, calf tenderness Back exam: Present: normal inspection Neurological exam: Present: alert, oriented X3, CN II-XII intact Psychiatric exam: Present: normal affect, normal mood Skin exam: Present: warm, dry, intact, normal color. Absent: rash Course Vital Signs 08/25/20 08/25/20 08/25/20 05:38 06:47 07:19 Temperature 97.7 F Pulse Rate 79 67 74 Respiratory 20 16 18 Rate Blood Pressure 173/76 146/89 138/84 O2 Sat by Pulse 100 95 97 Oximetry - Reevaluation(s) Reevaluation #1: Medical record is reviewed Patient symptoms significantly improved here in the ER Patient informed results questions answered EKG Findings - EKG Comments: EKG Findings:: EKG shows sinus rhythm 75 CA 158 QRS 90 QTC 435 Medical Decision Making - Medical Decision Making 55 female fictitious symptoms. Patient is able to amply without difficulty currently and can be discharged home - Lab Data Result diagrams: 08/25/20 06:02 08/25/20 06:02 Lab Results 08/25/20 08/25/20 08/25/20 Range/Units 06:02 06:02 06:02 WBC 7.6 (3.8-10.6) k/uL RBC 4.76 (3.80-5.40) m/uL Hgb 13.1 (11.4-16.0) gm/dL Hct 40.8 (34.0-46.0) % MCV 85.7 (80.0-100.0) fL MCH 27.5 (25.0-35.0) pg MCHC 32.1 (31.0-37.0) g/dL RDW 14.0 (11.5-15.5) % Plt Count 276 (150-450) k/uL MPV 8.1 Neutrophils % 52 % Lymphocytes % 38 % Monocytes % 4 % Eosinophils % 3 % Basophils % 1 % Neutrophils # 4.0 (1.3-7.7) k/uL Lymphocytes # 2.9 (1.0-4.8) k/uL Monocytes # 0.3 (0-1.0) k/uL Eosinophils # 0.2 (0-0.7) k/uL Basophils # 0.1 (0-0.2) k/uL PT 10.1 (9.0-12.0) sec INR 0.9 (<1.2) APTT 23.5 (22.0-30.0) sec D-Dimer 0.24 (<0.60) mg/L FEU Sodium 140 (137-145) mmol/L Potassium 4.1 (3.5-5.1) mmol/L Chloride 102 (98-107) mmol/L Carbon Dioxide 31 H (22-30) mmol/L Anion Gap 7 mmol/L BUN 17 (7-17) mg/dL Creatinine 0.80 (0.52-1.04) mg/dL Est GFR (CKD-EPI)AfAm >90 (>60 ml/min/1.73 sqM) Est GFR (CKD-EPI)NonAf 83 (>60 ml/min/1.73 sqM) Glucose 177 H (74-99) mg/dL Plasma Lactic Acid Andrés (0.7-2.0) mmol/L Calcium 9.2 (8.4-10.2) mg/dL Phosphorus 3.6 (2.5-4.5) mg/dL Magnesium 2.0 (1.6-2.3) mg/dL Total Bilirubin 0.4 (0.2-1.3) mg/dL AST 42 H (14-36) U/L ALT 44 H (4-34) U/L Alkaline Phosphatase 83 (38-126) U/L Creatine Kinase 97 (30-135) U/L Troponin I (0.000-0.034) ng/mL NT-Pro-B Natriuret Pep pg/mL Total Protein 7.1 (6.3-8.2) g/dL Albumin 4.4 (3.5-5.0) g/dL TSH 2.140 (0.465-4.680) mIU/L Coronavirus (PCR) (Not Detectd) 08/25/20 08/25/20 08/25/20 Range/Units 06:02 06:02 06:02 WBC (3.8-10.6) k/uL RBC (3.80-5.40) m/uL Hgb (11.4-16.0) gm/dL Hct (34.0-46.0) % MCV (80.0-100.0) fL MCH (25.0-35.0) pg MCHC (31.0-37.0) g/dL RDW (11.5-15.5) % Plt Count (150-450) k/uL MPV Neutrophils % % Lymphocytes % % Monocytes % % Eosinophils % % Basophils % % Neutrophils # (1.3-7.7) k/uL Lymphocytes # (1.0-4.8) k/uL Monocytes # (0-1.0) k/uL Eosinophils # (0-0.7) k/uL Basophils # (0-0.2) k/uL PT (9.0-12.0) sec INR (<1.2) APTT (22.0-30.0) sec D-Dimer (<0.60) mg/L FEU Sodium (137-145) mmol/L Potassium (3.5-5.1) mmol/L Chloride (98-107) mmol/L Carbon Dioxide (22-30) mmol/L Anion Gap mmol/L BUN (7-17) mg/dL Creatinine (0.52-1.04) mg/dL Est GFR (CKD-EPI)AfAm (>60 ml/min/1.73 sqM) Est GFR (CKD-EPI)NonAf (>60 ml/min/1.73 sqM) Glucose (74-99) mg/dL Plasma Lactic Acid Andrés 1.7 (0.7-2.0) mmol/L Calcium (8.4-10.2) mg/dL Phosphorus (2.5-4.5) mg/dL Magnesium (1.6-2.3) mg/dL Total Bilirubin (0.2-1.3) mg/dL AST (14-36) U/L ALT (4-34) U/L Alkaline Phosphatase (38-126) U/L Creatine Kinase (30-135) U/L Troponin I <0.012 (0.000-0.034) ng/mL NT-Pro-B Natriuret Pep 25 pg/mL Total Protein (6.3-8.2) g/dL Albumin (3.5-5.0) g/dL TSH (0.465-4.680) mIU/L Coronavirus (PCR) (Not Detectd) 08/25/20 Range/Units 07:04 WBC (3.8-10.6) k/uL RBC (3.80-5.40) m/uL Hgb (11.4-16.0) gm/dL Hct (34.0-46.0) % MCV (80.0-100.0) fL MCH (25.0-35.0) pg MCHC (31.0-37.0) g/dL RDW (11.5-15.5) % Plt Count (150-450) k/uL MPV Neutrophils % % Lymphocytes % % Monocytes % % Eosinophils % % Basophils % % Neutrophils # (1.3-7.7) k/uL Lymphocytes # (1.0-4.8) k/uL Monocytes # (0-1.0) k/uL Eosinophils # (0-0.7) k/uL Basophils # (0-0.2) k/uL PT (9.0-12.0) sec INR (<1.2) APTT (22.0-30.0) sec D-Dimer (<0.60) mg/L FEU Sodium (137-145) mmol/L Potassium (3.5-5.1) mmol/L Chloride (98-107) mmol/L Carbon Dioxide (22-30) mmol/L Anion Gap mmol/L BUN (7-17) mg/dL Creatinine (0.52-1.04) mg/dL Est GFR (CKD-EPI)AfAm (>60 ml/min/1.73 sqM) Est GFR (CKD-EPI)NonAf (>60 ml/min/1.73 sqM) Glucose (74-99) mg/dL Plasma Lactic Acid Andrés (0.7-2.0) mmol/L Calcium (8.4-10.2) mg/dL Phosphorus (2.5-4.5) mg/dL Magnesium (1.6-2.3) mg/dL Total Bilirubin (0.2-1.3) mg/dL AST (14-36) U/L ALT (4-34) U/L Alkaline Phosphatase (38-126) U/L Creatine Kinase (30-135) U/L Troponin I (0.000-0.034) ng/mL NT-Pro-B Natriuret Pep pg/mL Total Protein (6.3-8.2) g/dL Albumin (3.5-5.0) g/dL TSH (0.465-4.680) mIU/L Coronavirus (PCR) Not Detected (Not Detectd) - Radiology Data Radiology results: report reviewed (CT brain negative for acute disease), image reviewed Disposition Clinical Impression: Vertigo Disposition: HOME SELF-CARE Condition: Fair Instructions (If sedation given, give patient instructions): Dizziness (ED) Is patient prescribed a controlled substance at d/c from ED?: No Referrals: Jeffry Martínez MD [Primary Care Provider] - 1-2 days
[2020-08-25] MEDS ORDERED: diphenhydrAMINE 50 MG/ML 1 ML VIAL IVP STA (06:06)
[2020-08-25] MEDS ORDERED: ONDANSETRON 4 MG/2 ML VIAL IVP STA (06:06)
[2020-08-25 06:16] LABS: Basophils # (A) 0.1 k/uL (0-0.2); Basophils % (A) 1 %; Eosinophils # (A) 0.2 k/uL (0-0.7); Eosinophils % (A) 3 %; HCT 40.8 % (34.0-46.0); HGB 13.1 gm/dL (11.4-16.0); Lymphocytes # (A) 2.9 k/uL (1.0-4.8); Lymphocytes % (A) 38 %; MCH 27.5 pg (25.0-35.0); MCHC 32.1 g/dL (31.0-37.0); MCV 85.7 fL (80.0-100.0); Mean Platelet Volume 8.1; Monocytes # (A) 0.3 k/uL (0-1.0); Monocytes % (A) 4 %; Neutrophils % (A) 52 %; Platelet Count 276 k/uL (150-450); RBC 4.76 m/uL (3.80-5.40); WBC 7.6 k/uL (3.8-10.6)
[2020-08-25 06:26] LABS: ALT 44 U/L (4-34); AST 42 U/L (14-36); African American GFR (CKD) >90 (>60 ml/min/1.73 sqM); Albumin 4.4 g/dL (3.5-5.0); Alkaline Phosphatase 83 U/L (38-126); Anion Gap 7 mmol/L; Blood Urea Nitrogen 17 mg/dL (7-17); Calcium 9.2 mg/dL (8.4-10.2); Carbon Dioxide 31 mmol/L (22-30); Chloride 102 mmol/L (98-107); Creatine Kinase 97 U/L (30-135); Glucose 177 mg/dL (74-99); Non-African American GFR(CKD) 83 (>60 ml/min/1.73 sqM); Phosphorus 3.6 mg/dL (2.5-4.5); Potassium 4.1 mmol/L (3.5-5.1); Sodium 140 mmol/L (137-145); Total Bilirubin 0.4 mg/dL (0.2-1.3); Total Protein 7.1 g/dL (6.3-8.2)
[2020-08-25 06:29] LABS: D-Dimer 0.24 mg/L FEU (<0.60); INR 0.9 (<1.2); Partial Thromboplastin Time 23.5 sec (22.0-30.0); Prothrombin Time 10.1 sec (9.0-12.0)
--- NOTE | 2020-08-25 06:49 | CT ---
EXAMINATION TYPE: CT brain wo con DATE OF EXAM: 08/25/2020 HISTORY: Dizziness CT DLP: 1088.4 mGycm. Automated Exposure Control for Dose Reduction was Utilized. TECHNIQUE: CT scan of the head is performed without contrast. COMPARISON: None. FINDINGS: There is no acute intracranial hemorrhage or midline shift identified. There is mild diff use ventricular and sulcal prominence consistent with diffuse age-related cerebral atrophy. Haynes-whit e matter differentiation is maintained. The globes are intact and the visualized sinuses are clear. No suspicious opacification mastoid air cells. IMPRESSION: No acute intracranial hemorrhage or midline shift.
[2020-08-25] MEDS ORDERED: SODIUM CHLORIDE 0.9% 1,000 ML IV ONE (07:01)
[2020-08-25 07:28] VITALS: BP 138/84; PULSE 74; RESP 18
== END 2020-08-25 07:20 | disposition home or self-care (01) ==
LOC: EC 05:37 → UNDOADMOB 07:01 → 6NMEDSUR 07:01 → EC 07:20
DX: R42 Dizziness and giddiness (principal); R55 Syncope and collapse; R11.2 Nausea with vomiting, unspecified; I10 Essential (primary) hypertension; K21.9 Gastro-esophageal reflux disease without esophagitis; G43.909 Migraine, unspecified, not intractable, without status migrainosus; F41.9 Anxiety disorder, unspecified; Z87.891 Personal history of nicotine dependence; Z79.82 Long term (current) use of aspirin
CPT/HCPCS: 96361; 96374; 96375; 99285; 36415; 93005; 85379; 83880; 80053; 82550; 83605; 83735; 84100; 84443; 84484; 85025; 85610; 85730; 87635; 70450; J1200; J2405; 99284

== ENCOUNTER → 2022-09-06 | Outpatient (CLI) | payer OTHER | END | disposition home or self-care (01) | LOC: LABWHC1 08:49 | PROVIDERS: ATTEND Otolaryngology | DX: J30.89 Other allergic rhinitis (principal) | CPT/HCPCS: 36415; 86001 ==

== ENCOUNTER → 2022-09-13 | Outpatient (CLI) | payer OTHER ==
--- NOTE | 2022-09-16 13:07 | CT ---
EXAMINATION TYPE: CT sinus wo con DATE OF EXAM: 09/13/2022 COMPARISON: HISTORY: chronic sinusitis CT DLP: 654.8 mGycm CONTRAST: None The paranasal sinuses are examined in the axial plane at 2 mm thick sections. Reconstructed images i n the coronal plane were obtained. There is dental amalgam scatter artifact There is a small retention cyst within the posterior left maxillary sinus. Prior uncinectomies been p erformed. Prior ethmoidectomies been performed The sphenoid sinuses are clear. The frontal sinuses a re clear. The septum is evaluated. There is septal deviation to the right. The ostiomeatal units are patent. IMPRESSIONS: 1. Postsurgical uncinectomies and ethmoidectomies. 2. Small retention cyst inferior left maxillary sinus.
== END | disposition home or self-care (01) ==
LOC: RADCTMAIN 16:31
PROVIDERS: ATTEND Otolaryngology
DX: J32.0 Chronic maxillary sinusitis (principal); J34.89 Other specified disorders of nose and nasal sinuses
CPT/HCPCS: 70486

== ENCOUNTER → 2023-04-15 | Outpatient (CLI) | payer OTHER ==
--- NOTE | 2023-04-15 13:27 | BD ---
EXAMINATION TYPE: Axial Bone Density DATE OF EXAM: 04/15/2023 CLINICAL HISTORY: 57 years old Female. ICD-10 CODE: N95.1 POST MENOPAUSAL baseline Height: 5 ft 5 in Weight: 253 FRAX RISK QUESTIONS: Alcohol (3 or more units per day): no Family History (Parent hip fracture): no Glucocorticoids (More than 3mos): no (Ex: prednisone, prednisolone, methylprednisolone, dexamethasone, and hydrocortisone). History of Fracture in Adulthood: yes Secondary Osteoporosis: 1. Type 1 Diabetes: no 2. Hyperthyroidism: no 3. Menopause before 45: yes 4. Malnutrition: no 5. Chronic liver disease: no Rheumatoid Arthritis: no Current Tobacco Use: no RISK FACTORS HISTORY OF: Surgery to Spine/Hip(right/left)/Wrist (right/left): no MEDICATIONS: Thyroid Medications: Which medication: synthroid How Lon years Osteoporosis Medications: none EXAM MEASUREMENTS: Bone mineral densitometry was performed using the [employer] System. Bone mineral density as measured about the Lumbar spine is: ----- L1-L4(G/cm2): 1.305 T Score Values are as follows: ----- L1: 0.2 ----- L2: -0.3 ----- L3: 1.7 ----- L4: 2.4 ----- L1-L4: 1.0 Z Score Values are as follows: ----- L1: 0.1 ----- L2: -0.3 ----- L3: 1.6 ----- L4: 2.3 ----- L1-L4: 1.0 Bone mineral density about the R hip (g/cm2): 0.924 Bone mineral density about the L hip (g/cm2): 1.024 T Score values are as follows: -----R Neck: -0.8 -----L Neck: -0.1 -----R Total: 0.2 -----L Total: 0.5 Z Score values are as follows: -----R Neck: -0.4 -----L Neck: 0.3 -----R Total: 0.2 -----L Total: 0.5 baseline FRAX%s: The graph provided illustrates a 5.7% chance for a major osteoporotic fx and a 0.2 % chance f or the hips probability for fx in 10 years time. IMPRESSION: Normal (Values between +1 and -1 indicate normal bone mass). Consider repeating this study in 5 year s or sooner if there is some new clinical indication. NOTE: T-SCORE=SD OF THE YOUNG ADULT MEAN.
--- NOTE | 2023-04-16 09:33 | MM ---
Reason for Exam: Screening (asymptomatic). Last mammogram was performed 5 year(s) and 2 month(s) ago. Patient History: Menarche at age 10. First Full-Term at age 20. Left ovary removed at age 33. Right ovary removed at age 33. Hysterectomy at age 33. Postmenopausal. Bilateral Reduction. 04/10/2018, Benign Core Biopsy on the right side. Paternal grandmother had breast cancer. Risk Values: Tonya 5 year model risk: 1.6%. NCI Lifetime model risk: 8.9%. Prior Study Comparison: 04/26/2009 Screening Mammogram, [facility]. 03/05/2018 Bilateral Screening Mammogram, [facility]. 03/25/2018 Right Diagnostic Mammogram, [facility]. Tissue Density: The breast tissue is almost entirely fat. Findings: Analyzed By CAD. There is no suspicious group of microcalcifications or new suspicious mass. Benign-appearing calcifications right breast. Overall Assessment: Benign, BI-RAD 2 Management: Screening Mammogram of both breasts in [address] [facility] will attempt to contact patient to return for supplemental views and ultrasound if indicated. Patient should continue monthly self-breast exams. A clinical breast exam by your physician is recommended on an annual basis. This exam should not preclude additional follow-up of suspicious palpable abnormalities. Note on Tonya scores and lifetime risk: 1. A Tonya score greater than 3% is considered moderate risk. If this is the case, consider specialist referral to assess eligibility for a risk reducing agent. 2. If overall lifetime risk for the development of breast cancer is 20% or higher, the patient may qualify for future screening with alternating mammogram and breast MRI. Electronically signed and approved by: Edvin Mccullough DO
== END | disposition home or self-care (01) ==
LOC: RADBDWWP 11:27
PROVIDERS: ATTEND Family Medicine
DX: Z12.31 Encounter for screening mammogram for malignant neoplasm of breast (principal); N95.1 Menopausal and female climacteric states; Z80.3 Family history of malignant neoplasm of breast
CPT/HCPCS: 77063; 77067; 77080